=== PATIENT | male | born 1950 | race Caucasian/White ===

== ENCOUNTER → 2022-07-08 | Outpatient (CLI) | payer OTHER ==
[2022-07-08 10:18] LABS: BASOPHILS ABSOLUTE AUTO 0.03 K/mm3 (0.00-0.23); BASOPHILS PERCENT AUTO 1 % (0-2); EOSINOPHILS ABSOLUTE AUTO 0.03 K/mm3 (0.00-0.68); EOSINOPHILS PERCENT AUTO 1 % (0-6); Hematocrit 45.3 % (37.0-53.0); Hemoglobin 15.8 g/dL (13.5-17.5); IMMATURE GRAN ABSOLUTE AUTO 0.01 K/mm3 (0.00-0.10); IMMATURE GRAN PERCENT AUTO 0 % (0-1); LYMPHOCYTES ABSOLUTE AUTO 0.96 K/mm3 (0.84-5.20); LYMPHOCYTES PERCENT AUTO 26 % (21-46); MONOCYTES ABSOLUTE AUTO 0.52 K/mm3 (0.16-1.47); MONOCYTES PERCENT AUTO 14 % (4-13); Mean Corpuscular HGB 30.4 pg (26.0-34.0); Mean Corpuscular HGB Conc 34.9 g/dL (31.5-36.5); Mean Corpuscular Volume 87 fL (80-100); NEUTROPHILS ABSOLUTE AUTO 2.16 K/mm3 (1.96-9.15); NEUTROPHILS PERCENT AUTO 58 % (41-73); RDW Coefficient Variation 12.1 % (11.7-14.2); RDW Standard Deviation 38.8 fL (35.1-46.3); Red Blood Cell Count 5.19 M/mm3 (4.30-5.90); White Blood Cell Count 3.71 K/mm3 (4.00-11.30)
[2022-07-08 10:19] LABS: Mean Platelet Volume 10.3 fL (9.1-12.4); Platelet Count 114 K/mm3 (150-400)
[2022-07-08 10:28] LABS: Albumin/Globulin Ratio 1.1 (0.8-1.8); Bilirubin, Total 0.4 mg/dL (0.1-1.0); Bun/Creatinine Ratio 17.6 (12.0-20.0); Calcium, Blood 9.7 mg/dL (8.5-10.1); Creatinine, Blood 1.08 mg/dL (0.60-1.20); Globulin, Blood 3.6 g/dL (2.2-4.0); Total Protein, Blood 7.6 g/dL (6.4-8.2)
== END | disposition home or self-care (01) ==
LOC: LAB SHORT 10:11
PROVIDERS: Chiropractor
DX: R07.89 Other chest pain (principal); R10.13 Epigastric pain
CPT/HCPCS: 80053; 83690; 84484; 85025; 85379

== ENCOUNTER 2023-09-13 11:37 | Observation (INO) | payer OTHER ==
[~2023-09-13] VITALS: Ht 182.9 cm; Wt 62.6 kg
[2023-09-13] MEDS ORDERED: ALBU90OI INH (12:02)
[2023-09-13] MEDS ORDERED: Aspir 8181 MG PO (12:03)
[2023-09-13] MEDS ORDERED: ERLEADA60 MG PO (12:03)
[2023-09-13] MEDS ORDERED: Vitamin D1000 UNI1 PO (12:04)
[2023-09-13] MEDS ORDERED: B-12500 MC2 PO (12:05)
[2023-09-13] MEDS ORDERED: DICLOFENAC SOD100 GM TP (12:05)
[2023-09-13] MEDS ORDERED: DOCU100 PO (12:05)
[2023-09-13] MEDS ORDERED: [UNRECOGNIZED DRUG - CODE] DT (12:06)
[2023-09-13] MEDS ORDERED: FINA5 PO (12:06)
[2023-09-13] MEDS ORDERED: FLUO10 PO (12:06)
[2023-09-13] MEDS ORDERED: Flonase 0.05% N16 GM (12:07)
[2023-09-13] MEDS ORDERED: METF500C PO (12:08)
[2023-09-13] MEDS ORDERED: LIDO5TO TOP (12:08)
[2023-09-13] MEDS ORDERED: Norco 5-325 Ta1 EACH PO (12:08)
[2023-09-13] MEDS ORDERED: METO25 PO (12:09)
[2023-09-13] MEDS ORDERED: DULERA 100 MCG/13 GM INH (12:10)
[2023-09-13] MEDS ORDERED: PROM12.5S PR (12:33)
[2023-09-13] MEDS ORDERED: MIRALAX11910 PO (12:33)
[2023-09-13] MEDS ORDERED: CENTRUM SILVER1 EAC2 PO (12:33)
[2023-09-13] MEDS ORDERED: PROM25 PO (12:34)
[2023-09-13] MEDS ORDERED: ZOCOR20 MG PO (12:34)
[2023-09-13] MEDS ORDERED: NS 1,000 ML IV ONE (12:41)
[2023-09-13 13:06] LABS: Hematocrit 36.1 % (37.0-53.0); Hemoglobin 11.8 g/dL (13.5-17.5); Mean Corpuscular HGB 26.9 pg (26.0-34.0); Mean Corpuscular HGB Conc 32.7 g/dL (31.5-36.5); Mean Corpuscular Volume 82 fL (80-100); Mean Platelet Volume 9.4 fL (9.1-12.4); NRBC ABSOLUTE 0.13 K/mm3 (0.00-0.02); NRBC Auto 1.4 /100 WBC (0.0-0.2); Platelet Count 281 K/mm3 (150-400); RDW Coefficient Variation 16.1 % (11.7-14.2); RDW Standard Deviation 47.6 fL (35.1-46.3); Red Blood Cell Count 4.39 M/mm3 (4.30-5.90)
[2023-09-13 13:27] LABS: BAND PERCENT MAN 4 % (0-8); BASOPHILS PERCENT MAN 0 % (0-2); EOSINOPHILS PERCENT MAN 0 % (0-6); LYMPHOCYTES PERCENT MAN 11 % (21-46); MONOCYTES ABSOLUTE MAN 0.81 K/mm3 (0.16-1.47); MONOCYTES PERCENT MAN 9 % (4-13); MYELOCYTE ABSOLUTE MAN 0.09 K/mm3 (0.00-0.00); MYELOCYTE PERCENT MAN 1 % (0-0); NEUTROPHILS ABSOLUTE MAN 7.18 K/mm3 (1.96-9.15); SEG NEUTROPHILS PERCENT MAN 75 % (41-73); TOTAL CELLS COUNTED 100
[2023-09-13 13:42] LABS: Albumin, Blood 1.8 g/dL (3.4-5.0); Albumin/Globulin Ratio 0.4 (0.8-1.8); Bilirubin, Total 0.7 mg/dL (0.1-1.0); Bun/Creatinine Ratio 55.2 (12.0-20.0); Calcium, Blood 9.1 mg/dL (8.5-10.1); Creatinine, Blood 0.71 mg/dL (0.60-1.20); Globulin, Blood 4.6 g/dL (2.2-4.0); Potassium, Blood 4.5 mmol/L (3.5-5.5); Total Protein, Blood 6.4 g/dL (6.4-8.2)
[2023-09-13] MEDS ORDERED: Lactated Ringer's 1,000 ML IV SCH (14:00)
[2023-09-13 14:16] LABS: Base Excess Venous -7.1 mmol/L; Bicarbonate Venous 19.8 mmol/L (24.0-30.0); PCO2 Venous 25.1 mmHg (38-42); pH Blood Venous 7.44 (7.34-7.37)
--- NOTE | 2023-09-13 16:10 | NUR ---
MET WITH DILIP AND PROVIDER AT BEDSIDE. DISCUSSED EVENTS THAT LEAD UP TO HIM COMING TO THE HOSPITAL. HE REPORTED THAT HE IS FOLLOWING UP WITH ONCOLOGY OUTPATIENT. HE WAS ADMITED TO THE HOSPITAL, FOR FLUID, AND TO MONITOR LABS.
[2023-09-13] MEDS ORDERED: Ondansetron 4 MG TAB PO PRN (16:20)
[2023-09-13] MEDS ORDERED: Naloxone HCl 0.4MG / ML 1ML Vial IV PRN (16:20)
[2023-09-13] MEDS ORDERED: Acetaminophen 325 MG TABLET PO PRN (16:25)
[2023-09-13] MEDS ORDERED: Lidocaine 5% Ointment 35 gm TOP PRN (16:50)
[2023-09-13] MEDS ORDERED: Fluticasone 0.05% Nasal Spray PRN (16:55)
[2023-09-13] MEDS ORDERED: Promethazine HCl 25 MG Tab PO PRN (16:55)
[2023-09-13] MEDS ORDERED: HYDROcodone 5-APAP 325 TAB PO PRN (16:55)
[2023-09-13] MEDS ORDERED: Albuterol HFA200 ACT/6.7 GM INH INH PRN (17:10)
[2023-09-13] MEDS ORDERED: Mometasone/Formoterol MDI 100/5 mcg 13 GM INH SCH (17:15)
[2023-09-13 17:21] LABS: Bun/Creatinine Ratio 57.4 (12.0-20.0); Calcium, Blood 8.5 mg/dL (8.5-10.1); Creatinine, Blood 0.68 mg/dL (0.60-1.20); Potassium, Blood 4.5 mmol/L (3.5-5.5)
[2023-09-13 17:46] VITALS: BP 156/94
[2023-09-13] MEDS ORDERED: NS 1,000 ML IV SCH (18:00)
[2023-09-13] MEDS ORDERED: Metoprolol Tartrate 25 MG Tab PO SCH ×2 (19:00→21:00)
[2023-09-13 19:32] LABS: Source, Urine Clean Catch
[2023-09-13 19:36] LABS: Appearance, Urine Cloudy (Clear); Bilirubin, Urine Neg (Neg); Blood, Urine 5+ (Neg); Color, Urine Yellow (P-Yellow); Glucose Qualitative, Urine Neg (Neg); Ketones, Urine 2+ (Neg); Leukocyte Esterase, Urine 3+ (Neg); Nitrite, Urine Neg (Neg); Protein, Urine 2+ (Neg); Specific Gravity, Urine 1.015 (1.003-1.022); Urobilinogen, Urine NORM (Normal)
[2023-09-13 19:47] LABS: Bacteria Many /hpf; Red Blood Cells, Urine 50-100 /hpf (0-2); Squamous Epithelial Cells Few /hpf (Few); White Blood Cells, Urine 25-50 /hpf (0-5)
[2023-09-13 20:01] VITALS: BP 112/68
--- NOTE | 2023-09-13 20:12 | NUR ---
PT ADMITTED FROM ED 1735 COLE TO BED SLIDE TX. PT A/O X4, C/O GEN WEAKNESS, VERBAL AND INTERACTIVE, FLAT AFFECT AND MILD ANXIETY. "ARE YOU TAKING MY VS ALL THE TIME BECAUSE SOMETHING IS WRONG?". EXPLAINED WE NEEDED VS UPON ADMIT TO THE MEDICAL FLOOR. PT'S BP AND HR ELEVATED ST 135. LR INFUSING FROM ED. PT ORIETNTED TO ROOM AND CALL LIGHT AND SAFETY TO NOT GET UP UNATTENDED. PT OFFERED FLUIDS, HAS NO APPETITE RIGHT NOW. WILL CALL MD TO NOTIFY OF HR.
--- NOTE | 2023-09-13 20:15 | NUR ---
UPON PHYSICAL ASSESSMENT NOTED DISTENDED HARD OVER BLADDER, SCANNED 650ML. ATTEMPTED TO FLUSH PAREKH WITH STERILE SALINE BUT CATH OCCLUDED. CALLED DR PATTERSON, ORDER TO REPLACE PAREKH WITH COUDE AND SEND UA. ABLE TO REPLACE COUDE PAREKH WITHOUT INCICENT, ONE BLOOD CLOT CAME OUT INITIALLY AND MED YELLOW, SLIGHTLY CLOUDY URINE BEGAN TO FLOW OUT INTO COLLECTION BAG. SENT STERILE SPECIMIN FROM NEWLY CHANGED PAREKH.
--- NOTE | 2023-09-13 20:26 | NUR ---
1849, CALLED DR PATTERSON, NOTIFIED OF HR SUSTAINED 135, ORDERED TO START METOPROLOL NOW AND START NS, AND MARICHUY WOODRUFF
[2023-09-13] MEDS ORDERED: Lactobacil 2-S.Thermo-Bifido 1 1 Cap PO SCH (21:00)
[2023-09-13 23:17] LABS: Bun/Creatinine Ratio 55.8 (12.0-20.0); Calcium, Blood 8.3 mg/dL (8.5-10.1); Creatinine, Blood 0.7 mg/dL (0.60-1.20); Potassium, Blood 4.3 mmol/L (3.5-5.5)
[2023-09-14 02:52] VITALS: BP 117/68
--- NOTE | 2023-09-14 05:35 | NUR ---
SHIFT SUMMARY PT WAS VERY SLEEPY THIS EVENING. HE FELL ASLEEP DURING CONVERSATION. HE SLEPT THROUGHOUT THE NIGHT. HIS BREATHING WAS EVEN AND UNLABORED. FRESH WATER PROVIDED AT THE START OF SHIFT. PT COMPLAINS OF PAIN IN LEGS. PT REPOSITIONED FOR COMFORT.
--- NOTE | 2023-09-14 06:02 | NUR ---
CTA/CONSERVATOR ARTIFACTS I HAVE READ THE NURSNG STUDENT DOCUMENTATION. SHIFT SUMMARY IS IN CONSERVATOR ARTIFACTS NOTE.
[2023-09-14 06:10] LABS: Hematocrit 29.9 % (37.0-53.0); Hemoglobin 9.6 g/dL (13.5-17.5); Mean Corpuscular HGB 26.8 pg (26.0-34.0); Mean Corpuscular HGB Conc 32.1 g/dL (31.5-36.5); Mean Corpuscular Volume 84 fL (80-100); Mean Platelet Volume 9.9 fL (9.1-12.4); NRBC ABSOLUTE 0.09 K/mm3 (0.00-0.02); NRBC Auto 1.6 /100 WBC (0.0-0.2); Platelet Count 211 K/mm3 (150-400); RDW Coefficient Variation 16.4 % (11.7-14.2); RDW Standard Deviation 48.6 fL (35.1-46.3); Red Blood Cell Count 3.58 M/mm3 (4.30-5.90); White Blood Cell Count 5.69 K/mm3 (4.00-11.30)
[2023-09-14 07:10] LABS: BAND PERCENT MAN 4 % (0-8); BASOPHILS PERCENT MAN 0 % (0-2); EOSINOPHILS ABSOLUTE MAN 0.05 K/mm3 (0.00-0.68); EOSINOPHILS PERCENT MAN 1 % (0-6); LYMPHOCYTES ABSOLUTE MAN 0.62 K/mm3 (0.84-5.20); LYMPHOCYTES PERCENT MAN 11 % (21-46); METAMYELOCYTE ABSOLUTE MAN 0.05 K/mm3 (0.00-0.00); METAMYELOCYTE PERCENT MAN 1 % (0-0); MONOCYTES ABSOLUTE MAN 0.22 K/mm3 (0.16-1.47); MONOCYTES PERCENT MAN 4 % (4-13); MYELOCYTE ABSOLUTE MAN 0.11 K/mm3 (0.00-0.00); MYELOCYTE PERCENT MAN 2 % (0-0); SEG NEUTROPHILS PERCENT MAN 77 % (41-73); TOTAL CELLS COUNTED 100
[2023-09-14 07:30] VITALS: BP 117/68
[2023-09-14 08:22] LABS: Bun/Creatinine Ratio 53.5 (12.0-20.0); Calcium, Blood 8.3 mg/dL (8.5-10.1); Creatinine, Blood 0.6 mg/dL (0.60-1.20); Potassium, Blood 3.9 mmol/L (3.5-5.5)
[2023-09-14] MEDS ORDERED: Aspirin 81 MG TabEC PO SCH (09:00)
[2023-09-14] MEDS ORDERED: Cyanocobalamin 500 MCG Tab PO SCH (09:00)
[2023-09-14] MEDS ORDERED: Misc. Oral Solution PO SCH (09:00)
[2023-09-14] MEDS ORDERED: Misc. Tablet PO SCH (09:00)
[2023-09-14] MEDS ORDERED: Multivitamins/Minerals 1 Tab PO SCH (09:00)
[2023-09-14] MEDS ORDERED: Atorvastatin 10 MG Tab PO SCH (09:00)
[2023-09-14] MEDS ORDERED: Misc. Topical TOP SCH (09:00)
[2023-09-14] MEDS ORDERED: Enoxaparin 40 MG/0.4 ML SYR SC SCH (09:00)
[2023-09-14] MEDS ORDERED: Cholecalciferol 1000 Unit Tablet (=25MCG) PO SCH (09:00)
[2023-09-14] MEDS ORDERED: Finasteride 5 MG Tab PO SCH (09:00)
[2023-09-14] MEDS ORDERED: FLUoxetine HCl 10 MG Cap PO SCH (09:00)
[2023-09-14] MEDS ORDERED: SULTRIDS PO (11:03)
[2023-09-14 12:31] LABS: Bun/Creatinine Ratio 58.8 (12.0-20.0); Calcium, Blood 8.3 mg/dL (8.5-10.1); Creatinine, Blood 0.48 mg/dL (0.60-1.20); Potassium, Blood 4.7 mmol/L (3.5-5.5)
--- NOTE | 2023-09-14 13:48 | NUR ---
SHIFT/DISCHARGE SUMMARY: PATIENT A/OX4, FLAT AFFECT, WITHDRAWN, ANSWER TO QUESTIONS APPROPRIATELY AND ABLE TO MAKE NEEDS KNOWN. PATIENT REQUESTING TO BE DISCHARGE FIRST THIS THIS AM. DR. DELUCA NOTIFIED c PATIENT REQUEST DURING ROUNDING THIS AM. PATIENT DENIES CP/PRESSURE, N/V, DIZZINESS AND SOB. PATIENT ON TELE, ST HR IN THE 110'S BPM. PATIENT REPORTS "NO APPETITE.". PATIENT HAD ECHO DONE THIS AM c RESULT. PATIENT HAD PT EVAL THIS AM, RECOMMENDED HH SERVICES. PATIENT RECEIVED SCHEDULED MEDS PER EMAR. VITAL SIGNS REVIEWED. PIV RO R FOREARM DC'D. PATIENT HAS CHRONIC PAREKH AND DISCHARGING c PAREKH CATHETER. CATH CARE DONE. PATIENT DISCHARGE HOME c HH SERVICES THROUGH ([facility]). DISCHARGE INSTRUCTIONS PACKET GIVEN TO PATIENT. EDUCATE PATIENT REGARDING ADMITITNG DX'S OF DEHYDRATION, S/S, TX, HARD SCRIPTS TO FOLLOW UP LAB FOR (BPM/NA) ON 09/19/23, JAMES HARD SCRIPTS GIVEN TO PATIENT AND TO FOLLOW UP c PCP. PATIENT VERBALIZED UNDERSTANDING AN NO FURTHER QUESTIONS AT THIS TIME. RX WAS FAXED TO PATIENT PREFERRED [facility] ([facility] ALL PATIENT PERSONAL BELONGINGS WERE SENT HOME c THE PATIENT. PATIENT LEFT THE ROOM AT 1344 AND WAS TRANSPORTED VIA WHEELCHAIR BY FAMILY LAW ATTORNEY STAFFROBERT TO PATIENT ENTRANCE-RIDES AWATING FOR PATIENT.
== END 2023-09-14 13:44 | disposition home or self-care (01) ==
LOC: ER 11:37 → MEDS 11:38 → ENPENDDIS 09-14 10:50 → MEDS 09-14 13:44
PROVIDERS: Emergency Medicine; Family Medicine; ADMIT Internal Medicine
DX: E86.0 Dehydration (principal); E87.1 Hypo-osmolality and hyponatremia; R19.7 Diarrhea, unspecified; R00.0 Tachycardia, unspecified; E87.20 Acidosis, unspecified; E11.9 Type 2 diabetes mellitus without complications; I10 Essential (primary) hypertension; C61 Malignant neoplasm of prostate; C79.51 Secondary malignant neoplasm of bone; R74.8 Abnormal levels of other serum enzymes; M79.604 Pain in right leg; Z66 Do not resuscitate; Z79.899 Other long term (current) drug therapy; Z79.82 Long term (current) use of aspirin; Z79.84 Long term (current) use of oral hypoglycemic drugs
CPT/HCPCS: 36415; 73590; 80048; 80053; 81001; 82803; 82947; 83605; 83735; 85025; 87077; 87086; 87186; 93005; 93010; 93306; 94640; 94664; 94760; 96360; 96372; 97116; 97162; 99285-25; A9270; G0378; J1650; J7030; J7120